=== PATIENT | female | born 1940 | race African-American/Black ===

== ENCOUNTER 2016-07-09 10:42 | Inpatient (IN) | payer OTHER, MEDICAID ==
[~2016-07-09] VITALS: Ht 180.3 cm; Wt 69.4 kg
[~2016-07-09 10:42] MED LIST: ADVAIR 250-501 EACH INH; AMLODIPINE BESY10 MG ORAL; COLCRYS0.6 M1 PO; GABAPENTIN100 MG ORAL; HYDROCHLOROTHIA25 MG ORAL; LEVAQUIN500 MG ORAL; LORAZEPAM1 MG ORAL; MEDROL DOSEPAK4 MG ORAL; OMEPRAZOLE20 M2 ORAL; POTASSIUM CHLO10 ME2 PO; POTASSIUM20 MEQ/101 IV; PREDNISONE10 MG ORAL; PROAIR HFA8.5 GM INH; THEOPHYLLI80 MG/151 PO; TRAMADOL HCL50 MG ORAL
[2016-07-09 12:14] LABS: MEAN CORPUSCULAR HEMOGLOBIN 13.9 PG (27.0-31.0); MEAN CORPUSCULAR HGB CONC 26.1 G/DL (32.0-36.0); MEAN CORPUSCULAR VOLUME 53 FL (80-99); MEAN PLATELET VOLUME 5.4 FL (6.5-10.1); PLATELET COUNT 392 K/UL (150-450); RED CELL DISTRIBUTION WIDTH 16.9 % (11.6-14.8); WHITE BLOOD COUNT 9.1 K/UL (4.8-10.8)
[2016-07-09 12:19] VITALS: BP 127/75
[2016-07-09 12:28] LABS: ALANINE AMINOTRANSFERASE 8 U/L (3-33); ALBUMIN/GLOBULIN RATIO 1.9 (1.0-2.7); ANION GAP 11 (5-15); ASPARTATE AMINO TRANSFERASE 11 U/L (5-40); CALCIUM 8.8 mg/dL (8.6-10.2); CARBON DIOXIDE 31 mEQ/L (20-30); CHLORIDE 101 mEQ/L (98-107); CREATININE 0.6 mg/dL (0.5-0.9); HEMOLYSIS 0; POTASSIUM 2.9 mEQ/L (3.4-4.9); SODIUM 143 mEQ/L (135-145); TOTAL PROTEIN 6.1 g/dL (6.6-8.7)
[2016-07-09 12:30] LABS: INR 1.1 (0.9-1.1)
[2016-07-09 12:43] LABS: TROPONIN I < 0.30 ng/mL (<=0.30)
[2016-07-09 13:37] LABS: ANISOCYTOSIS 1+; BAND NEUTROPHILS % (MANUAL) 0 % (0-8); BASOPHILS % (MANUAL) 0 % (0-2); EOSINOPHILS % (MANUAL) 0 % (0-3); HYPOCHROMASIA 3+; LYMPHOCYTES % (MANUAL) 25 % (20-45); NEUTROPHILS % (MANUAL) 65 % (45-75); PLATELET ESTIMATE ADEQUATE; PLATELET MORPHOLOGY NORMAL; TOTAL CELLS COUNTED 100
[2016-07-09 13:38] LABS: MICROCYTES 1+
[2016-07-09] MEDS ORDERED: DiphenhydrAMINE 50mg/ml Inj IVP ONE (14:00)
--- NOTE | 2016-07-09 15:01 | Emergency Room Report ---
History of Present Illness General Chief Complaint: General Complaint Source: Patient Present Illness HPI 76-year-old female presents to ED for evaluation. States the last 2 weeks she has been having chest tightness. Denies any shortness of breath. Denies chest tightness at this time. Does history of high blood pressure. Was seen by her PMD this week Dr. Bowman. Had lab work which stated that her hemoglobin was 5.1. Was told to come to the ER for further evaluation. Denies feeling dizziness or weakness. Denies any evidence of rectal bleeding. No other aggravating or relieving factors. Denies any other associated symptoms Allergies: Coded Allergies: PENICILLINS (Verified Allergy, Severe, 03/13/15) Patient History Past Medical History: HTN, asthma Past Surgical History: none Pertinent Family History: none Social History: Denies: alcohol use, drug use, smoking Now: No Immunizations: UTD Reviewed Nursing Documentation: PMH: Agreed, PSxH: Agreed Nursing Documentation-PMH Past Medical History: No History, Except For Hx Hypertension: Yes Hx Asthma: Yes Hx Cancer: No Hx Gastrointestinal Problems: No Hx Neurological Problems: No Review of Systems All Other Systems: negative except mentioned in HPI Physical Exam Vital Signs Date Time Temp Pulse Resp B/P Pulse Ox O2 Delivery O2 Flow Rate FiO2 07/09/16 11:17 88 15 145/56 98 Room Air 07/09/16 12:19 97.5 Sp02 EP Interpretation: reviewed, normal General Appearance: no apparent distress, alert, GCS 15, non-toxic Head: normocephalic Eyes: bilateral eye PERRL, bilateral eye normal inspection ENT: hearing grossly normal, normal pharynx, no angioedema, normal voice Neck: full range of motion, supple/symm/no masses Respiratory: chest non-tender, lungs clear, normal breath sounds, speaking full sentences Cardiovascular #1: regular rate, rhythm, no edema Cardiovascular #2: 2+ carotid (R), 2+ carotid (L), 2+ radial (R), 2+ radial (L) , 2+ dorsalis pedis (R), 2+ dorsalis pedis (L) Gastrointestinal: normal bowel sounds, non tender, soft, non-distended, no guarding, no rebound Rectal: deferred Genitourinary: normal inspection, no CVA tenderness Musculoskeletal: back normal, gait/station normal, normal range of motion, non- tender Neurologic: alert, oriented x3, responsive, motor strength/tone normal, sensory intact, speech normal Psychiatric: judgement/insight normal, memory normal, mood/affect normal, no suicidal/homicidal ideation Reflexes: 3+ bicep (R), 3+ bicep (L), 3+ tricep (R), 3+ tricep (L), 3+ knee (R) , 3+ knee (L) Skin: normal color, no rash, warm/dry, well hydrated Lymphatic: no adenopathy Procedures Critical Care Time Critical Care Time i. I feel this is a highly complex case requiring extensive working including EKG/Rhythm strip, Xray/CT/US, Blood/urine lab work, repeat exams while in ED, and administration of strong opiates/narcotics for pain control, admission to hospital or close patient follow up. Total time: 30 min bedside evaluation and treatment excludes procedures (EKG). Reason for critical care: Hemoglobin 4.9 Possible complications: hypotension, hypertension, HI, shock, arrhythmias, metabolic acidosis, end organ damage, respiratory failure. Interventions: Labs, EKG, blood transfusion Course: Patient sent for evaluation of hemoglobin 5.1 done at PMD office. EKG shows no ischemic changes. Hemoglobin 4.9 here. Troponins negative. PRBCs ordered. Patient remains stable. Vital stable Consultations: nursing staff, EMS, family Performed by: Dr Srivastava Tolerated well condition = serious j. because of unstable vital signs this patient had a condition that could potentially threaten life or limb. I feel this is a critical patient who required my full attention while patient was considered critical. Total Critical Care Time excluding procedures was greater than 35 minutes Medical Decision Making Diagnostic Impression: Primary Impression: Anemia Qualified Codes: D64.9 - Anemia, unspecified ER Course Hospital Course 76-year-old female presents to ED for evaluation of possible anemia, with possible transfusion Differential diagnoses include: anemia requiring transfusion, microcytic anemia , macrocytic anemia, heavy blood loss Clinical course Patient placed on stretcher. After initial history and physical I ordered labs including CBC and type and screen. Labs- hemoglobin 4.9, troponins negative. EKG - no ischemic changes 4 units PRBCs ordered. case discused with Dr Roque and he agreed to admit patient to his service for further care and support Diagnosis - symptomatic anemia Admitted to tele in serious condition Labs Test 07/09/16 11:50 White Blood Count 9.1 K/UL (4.8-10.8) Red Blood Count 3.50 M/UL (4.20-5.40) Hemoglobin 4.9 G/DL (12.0-16.0) Hematocrit 18.6 % (37.0-47.0) Mean Corpuscular Volume 53 FL (80-99) Mean Corpuscular Hemoglobin 13.9 PG (27.0-31.0) Mean Corpuscular Hemoglobin Concent 26.1 G/DL (32.0-36.0) Red Cell Distribution Width 16.9 % (11.6-14.8) Platelet Count 392 K/UL (150-450) Mean Platelet Volume 5.4 FL (6.5-10.1) Neutrophils (%) (Auto) % (45.0-75.0) Lymphocytes (%) (Auto) % (20.0-45.0) Monocytes (%) (Auto) % (1.0-10.0) Eosinophils (%) (Auto) % (0.0-3.0) Basophils (%) (Auto) % (0.0-2.0) Differential Total Cells Counted 100 Neutrophils % (Manual) 65 % (45-75) Lymphocytes % (Manual) 25 % (20-45) Monocytes % (Manual) 10 % (1-10) Eosinophils % (Manual) 0 % (0-3) Basophils % (Manual) 0 % (0-2) Band Neutrophils 0 % (0-8) Platelet Estimate Adequate Platelet Morphology Normal Hypochromasia 3+ Anisocytosis 1+ Microcytosis 1+ Prothrombin Time 11.0 SEC (9.30-11.50) Prothromb Time International Ratio 1.1 (0.9-1.1) Activated Partial Thromboplast Time 27 SEC (23-33) Sodium Level 143 mEQ/L (135-145) Potassium Level 2.9 mEQ/L (3.4-4.9) Chloride Level 101 mEQ/L (98-107) Carbon Dioxide Level 31 mEQ/L (20-30) Anion Gap 11 (5-15) Blood Urea Nitrogen 5 mg/dL (7-23) Creatinine 0.6 mg/dL (0.5-0.9) Estimat Glomerular Filtration Rate mL/min (>60) Glucose Level 94 mg/dL (74-106) Calcium Level 8.8 mg/dL (8.6-10.2) Total Bilirubin 0.7 mg/dL (0.0-1.2) Aspartate Amino Transf (AST/SGOT) 11 U/L (5-40) Alanine Aminotransferase (ALT/SGPT) 8 U/L (3-33) Alkaline Phosphatase 46 U/L (35-104) Troponin I < 0.30 ng/mL (<=0.30) Total Protein 6.1 g/dL (6.6-8.7) Albumin 4.0 g/dL (3.5-5.2) Globulin 2.1 g/dL Albumin/Globulin Ratio 1.9 (1.0-2.7) EKG Diagnostic Results Rate: normal Rhythm: NSR ST Segments: no acute changes ASA given to the pt in ED: No Rhythm Strip Diag. Results EP Interpretation: yes Rhythm: NSR, no PVC's, no ectopy Last Vital Signs Date Time Temp Pulse Resp B/P Pulse Ox O2 Delivery O2 Flow Rate FiO2 07/09/16 12:19 97.5 82 15 127/75 98 Room Air Status: improved Disposition: ADMITTED INPATIENT Condition: Serious Referrals: TEODORO BOWMAN (PCP) CELSO SRIVASTAVA M.D. Jul 09, 2016 15:01
[2016-07-09 15:13] VITALS: BP 126/60
[2016-07-09 16:00] VITALS: BP 140/70
[2016-07-09] MEDS ORDERED: traMADol 50mg tab ORAL PRN (17:30)
[2016-07-09] MEDS ORDERED: Albuterol 90mcg Inhaler 8gm INH PRN (17:30)
[2016-07-09] MEDS ORDERED: LORazepam 1mg tab ORAL SCH (18:00)
[2016-07-09] MEDS ORDERED: LORazepam 1mg tab ORAL PRN (18:45)
[2016-07-09 20:00] VITALS: BP 129/59
[2016-07-09] MEDS: Advair 250/50 Inhaler - 14 dose INH SCH (21:16)
--- NOTE | 2016-07-09 22:07 | History and Physical Report ---
DATE OF ADMISSION: 07/09/2016 HISTORY OF PRESENT ILLNESS: The patient is a 76-year-old woman, who was sent from her doctor's office because of anemia. She states that she has been feeling weak for about the past two weeks. She had no palpitations or shortness of breath. Her baseline asthma has been stable. She has no signs of bleeding. She went to her doctor today, who did a blood count and found her hemoglobin was 5.1. He has sent her to the emergency department. Here, her hemoglobin was repeated and it is 4.9. Her stool is negative for occult blood. She has no history of anemia or other blood disorders. PAST MEDICAL HISTORY: The patient is generally in good health. She has a history of hypertension and asthma. SURGICAL HISTORY: She had a hysterectomy. MEDICATIONS: Includes albuterol, amlodipine, colchicine, Advair, Neurontin, hydrochlorothiazide, Levaquin, Ativan, prednisone, omeprazole, potassium, theophylline, and tramadol. ALLERGIES: To penicillin. SOCIAL HISTORY: She does not drink or smoke and does not use illicit drugs. REVIEW OF SYSTEMS: Otherwise unremarkable except she does have vitiligo. She has arthritis and has had back surgery in the past. PHYSICAL EXAMINATION: GENERAL: The patient is alert and responds appropriately. VITAL SIGNS: Show blood pressure and other vital signs are normal. HEENT: Head is normocephalic. NECK: There is no jugular venous distention. No lymphadenopathy. CHEST: Clear with only occasional wheezing. CARDIAC: Rhythm is regular. ABDOMEN: Soft and nontender. Liver and spleen are not enlarged. No mass or ascites. EXTREMITIES: No clubbing, cyanosis, or edema. SKIN: Shows vitiligo. LABORATORY DATA: Hemoglobin is 4.9, hematocrit 18.6, MCV is low at 53, and platelet count 392,000. The white count is normal. Differential appears normal. Chemistry shows potassium is low at 2.9. BUN is 5 and creatinine 0.6. Protein is 6.1. Albumin is 4.0. IMPRESSION: 1. Severe anemia, microcytic, possibly related to iron-deficiency or thalassemia. 2. Hypokalemia. 3. Hypertension. 4. Asthma. PLAN: The patient will be given blood transfusions. We will have Hematology consultation. We will check stool for occult blood and check iron levels. Zeb Roque M.D. DR: MATTHEW JOB#: [id number] CC:
[2016-07-10 00:43] VITALS: BP 136/65
[2016-07-10 04:39] VITALS: BP 143/62
[2016-07-10 05:12] LABS: MEAN CORPUSCULAR HEMOGLOBIN 18.2 PG (27.0-31.0); MEAN CORPUSCULAR HGB CONC 29.8 G/DL (32.0-36.0); MEAN CORPUSCULAR VOLUME 61 FL (80-99); MEAN PLATELET VOLUME 5.9 FL (6.5-10.1); PLATELET COUNT 360 K/UL (150-450); RED BLOOD COUNT 4.28 M/UL (4.20-5.40); RED CELL DISTRIBUTION WIDTH 27.2 % (11.6-14.8); WHITE BLOOD COUNT 8.4 K/UL (4.8-10.8)
[2016-07-10 07:50] LABS: OTHERS PATHOLOGIST COMMENT
[2016-07-10 08:04] VITALS: BP 138/59
[2016-07-10] MEDS: Advair 250/50 Inhaler - 14 dose INH SCH ×2 (08:58→20:47)
[2016-07-10] MEDS ORDERED: Pneumococcal Vaccine 25mcg/0.5ml IM ONE (09:00)
[2016-07-10 11:43] VITALS: BP 147/66
[2016-07-10 12:57] LABS: HEMOLYSIS 6; IRON 15 ug/dL (37-145); TOTAL IRON BINDING CAPACITY 358 ug/dL (250-400)
[2016-07-10 13:41] LABS: FERRITIN 8 ng/mL (13-150)
--- NOTE | 2016-07-10 14:18 | Cardiology Report ---
APPROVED REPORT EKG Measurement Heart [id number] Normal sinus rhythm Anterior infarct, age undetermined Abnormal ECG
[2016-07-10 16:00] VITALS: BP 140/67
--- NOTE | 2016-07-10 18:19 | General Progress Note ---
Assessment/Plan Assessment/Plan 1. Severe anemia, microcytic, possibly related to iron-deficiency or thalassemia. 2. Hypokalemia. 3. Hypertension. 4. Asthma. feels better iron studies suggest iron deficiency Hgb 7.8 - will give one more unit heme called prob dc tomorrow out pt GI eval Subjective Constitutional: Reports: no symptoms Allergies: Coded Allergies: PENICILLINS (Verified Allergy, Severe, 03/13/15) Objective Last 24 Hour Vital Signs Date Time Temp Pulse Resp B/P Pulse Ox O2 Delivery O2 Flow Rate FiO2 07/10/16 16:00 98.1 66 20 140/67 97 Room Air 07/10/16 12:00 74 07/10/16 11:43 97.7 70 18 147/66 98 Room Air 07/10/16 09:00 72 18 96 Room Air 07/10/16 08:58 72 18 96 Room Air 07/10/16 08:52 66 138/59 07/10/16 08:04 97.7 66 18 138/59 97 Room Air 07/10/16 08:00 80 07/10/16 04:39 98.1 73 18 143/62 94 Room Air 07/10/16 04:00 71 07/10/16 00:43 97.2 69 19 136/65 98 Room Air 07/10/16 00:00 75 07/09/16 21:17 68 20 95 Room Air 07/09/16 21:17 68 20 95 Room Air 07/09/16 20:00 76 07/09/16 20:00 97.9 68 21 129/59 95 Room Air Intake and Output 07/09/16 07/10/16 19:00 07:00 Intake Total 120 ml 300 ml Balance 120 ml 300 ml Intake Oral 120 ml 300 ml # Voids 3 Laboratory Tests 07/09/16 20:08: Urine Total Protein [Pending], Urine Albumin (%) [Pending], Urine Alpha-1- Globulins (%) [Pending], Urine Vilzz-5-Lakfscvmd (%) [Pending], Urine Beta- Globulin (%) [Pending], Urine Gamma Globulin (%) [Pending], Ur Protein Electrophoresis M-Cyrus [Pending], Urine Protein Electrophoresis Intrp [Pending] 07/10/16 05:00: White Blood Count 8.4, Red Blood Count 4.28, Hemoglobin 7.8#L, Hematocrit 26.1#L , Mean Corpuscular Volume 61#L, Mean Corpuscular Hemoglobin 18.2L, Mean Corpuscular Hemoglobin Concent 29.8L, Red Cell Distribution Width 27.2H, Platelet Count 360, Mean Platelet Volume 5.9L, Neutrophils (%) (Auto) , Lymphocytes (%) (Auto) , Monocytes (%) (Auto) , Eosinophils (%) (Auto) , Basophils (%) (Auto) , Reticulocyte Count 2.3H, Hemoglobin A [Pending], Hemoglobin A2 [Pending], Hemoglobin C [Pending], Hemoglobin F () [Pending] , Hemoglobin S [Pending], Variant Hemoglobin [Pending], Hemoglobin Electrophoresis Interp [Pending], Hemoglobin Interpretation [Pending], Hemoglobin Solubility [Pending], Iron Level 15L, Total Iron Binding Capacity 358 , Percent Iron Saturation 4L, Unsaturated Iron Binding 343, Ferritin 8L, Vitamin B12 Level [Pending] 07/10/16 08:55: Stool Occult Blood Negative Height (Feet): 5 Height (Inches): 11.00 Weight (Pounds): 153 General Appearance: no apparent distress Cardiovascular: normal rate Respiratory/Chest: lungs clear Abdomen: soft, no organomegaly ELDER HAMPTON Jul 10, 2016 18:19
[2016-07-10 19:00] VITALS: BP 118/57
[2016-07-10] MEDS ORDERED: Iron Sucrose 100 MG in NS 55 ML IVPB SCH (21:00)
[2016-07-11 00:21] VITALS: BP 146/67
[2016-07-11 04:18] VITALS: BP 143/65
--- NOTE | 2016-07-11 05:57 | Consultation ---
DATE OF CONSULTATION: 07/10/2016 NOTE: POOR AUDIO HEMATOLOGY/ONCOLOGY CONSULTATION CONSULTING PHYSICIAN: Meng Hunt M.D. REQUESTING PHYSICIAN: Zeb Roque M.D. REASON FOR CONSULTATION: Evaluation of iron deficiency anemia. IDENTIFICATION DATA: Dear Dr. Zeb Roque, The patient is a pleasant 76-year-old female, with a past medical history significant for anemia, hypertension, and asthma, at this time presents to the [facility] with weakness as well as malaise and fatigue over the past several weeks. She otherwise had no shortness of breath. Upon presentation to the ER, she was noted to have a hemoglobin of 5.1. blood. Iron panel was ordered, which showed an iron deficiency anemia as well as . Hematology service was consulted for further evaluation and treatment. PAST MEDICAL HISTORY: Hypertension and asthma. SURGICAL HISTORY: Hysterectomy. MEDICATIONS: Albuterol, colchicine, Ativan, amlodipine, Neurontin, Levaquin, Advair, prednisone, omeprazole, potassium, and tramadol. ALLERGIES: Penicillin. SOCIAL HISTORY: No alcohol, tobacco, or illicit drug use. REVIEW OF SYSTEMS: Constitutional: No fever, chills, or night sweats. Skin: No rashes, lumps, or itching. HEENT: No headache, hearing or vision changes. Breasts: No lumps, pain, or discharge. Pulmonary: No cough, sputum, or shortness of breath. Cardiovascular: No chest pain, tightness, or palpitations. Gastrointestinal: No nausea, vomiting, or diarrhea. Genitourinary: No dysuria, frequency, or urgency. Musculoskeletal: No joint swelling, muscle pain, or trauma. Neurological: No dizziness, fainting, or seizures. PHYSICAL EXAMINATION: GENERAL: The patient is in no acute distress. VITAL SIGNS: Temperature 98.1 degrees Fahrenheit , pulse 63, respiratory rate 12, blood pressure 140/67, and pulse oximetry 97% on room air. PULMONARY: Decreased breath sounds. CARDIOVASCULAR: Regular rate and rhythm. No S3 or S4. ABDOMEN: Soft, nontender, and nondistended. EXTREMITIES: A 1+ edema. Laboratory Data: WBC 8.4, hemoglobin 7.8, hematocrit 26, MCV 51, and 01:56 213. Hemoglobin electrophoresis pending. BUN of 11 and creatinine 0.6. TIBC 343, ferritin of 8, INR 1.1. ASSESSMENT: 1. Anemia secondary to iron deficiency. The patient is status post transfusion with dialysis. 2. Decreased hemoglobin and hematocrit, rule out gastrointestinal bleed. 3. Microcytosis, concerning for thalassemia and/or thalassemia minor. 4. Hypertension. 5. Hypokalemia. 6. Asthma. RECOMMENDATION: 1. Monitor counts. 2. Anemia workup shows severe iron deficiency anemia. 3. . 4. IV iron. 5. Obtain hemoglobin and electrophoresis. 6. B12 and folate levels review. 7. the patient improves. 8. Maintain hemoglobin . 9. GI therapy evaluation as an outpatient. 10. Discussed with staff. Thank you, Dr. Zeb Roque, for this kind referral. Please do not hesitate to contact me if you have any further questions. Meng Hunt M.D. DR: GALA JOB#: [id number] CC:
[2016-07-11 08:00] VITALS: BP 149/70
[2016-07-11 08:03] LABS: BASOPHILS % (AUTO) 0.8 % (0.0-2.0); EOSINOPHILS % (AUTO) 1.6 % (0.0-3.0); LYMPHOCYTES % (AUTO) 15.5 % (20.0-45.0); MEAN CORPUSCULAR HEMOGLOBIN 18.6 PG (27.0-31.0); MEAN CORPUSCULAR VOLUME 64 FL (80-99); MEAN PLATELET VOLUME 6.4 FL (6.5-10.1); MONOCYTES % (AUTO) 11.7 % (1.0-10.0); NEUTROPHILS % (AUTO) 70.5 % (45.0-75.0); PLATELET COUNT 389 K/UL (150-450); RED BLOOD COUNT 5.08 M/UL (4.20-5.40); RED CELL DISTRIBUTION WIDTH 28.8 % (11.6-14.8); WHITE BLOOD COUNT 9.5 K/UL (4.8-10.8)
[2016-07-11 08:26] LABS: ANION GAP 14 (5-15); CALCIUM 9.1 mg/dL (8.6-10.2); CARBON DIOXIDE 26 mEQ/L (20-30); CHLORIDE 104 mEQ/L (98-107); CREATININE 0.5 mg/dL (0.5-0.9); HEMOLYSIS 1; POTASSIUM 3.3 mEQ/L (3.4-4.9); SODIUM 144 mEQ/L (135-145)
[2016-07-11] MEDS: Advair 250/50 Inhaler - 14 dose INH SCH ×2 (09:28→19:13)
[2016-07-11 12:00] VITALS: BP 145/66
[2016-07-11] MEDS ORDERED: FERROUS SULFAT325 MG ORAL (15:40)
--- NOTE | 2016-07-11 15:43 | Discharge Summary ---
Discharge Summary Hospital Course Date of Admission Jul 09, 2016 at 14:10 Date of Discharge 07/11/16 Admitting Diagnosis SEVERE ANEMIA HPI Marina L Tee is a 76 year old female who was admitted on Jul 09, 2016 at 14: 10 for Severe Anemia Consultations hematology Procedures transfusion x 4 u PRBCs Hospital Course Hgb better post transfusion labs c/w iron deficiency stool neg advised she needs panendoscopy as outpatient Discharge Medications New Medications: Ferrous Sulfate* (Ferrous Sulfate*) 325 Mg Tablet 325 MG ORAL THREE TIMES A DAY, #90 TAB 0 Refills Continued Medications: Albuterol Sulfate* (Proair Hfa*) 8.5 Gm Hfa.aer.ad 1 PUFF INH Q6H, #8.5 GM 0 Refills Amlodipine Besylate* (Amlodipine Besylate*) 10 Mg Tablet 10 MG ORAL DAILY, TAB Colchicine (Colcrys) 0.6 Mg Tablet 0.6 MG PO, TAB Fluticasone/Salmeterol (Advair 250-50 Diskus) 1 Each Disk.w.dev 1 PUFF INH EVERY 12 HOURS, EA Gabapentin* (Gabapentin*) 100 Mg Capsule 100 MG ORAL THREE TIMES A DAY, CAP Hydrochlorothiazide* (Hydrochlorothiazide*) 25 Mg Tablet 25 MG ORAL DAILY, TAB Lorazepam* (Lorazepam*) 1 Mg Tablet 1 MG ORAL THREE TIMES A DAY, TAB Methylprednisolone (Methylprednisolone) 4 Mg Tab 4 MG ORAL .as directed, #1 EA 0 Refills Omeprazole (Omeprazole) 20 Mg Capsule.dr 20 MG ORAL DAILY, CAP Potassium Chloride (Potassium Chloride) 10 Meq Tab.er.prt 20 MEQ PO DAILY, TAB Tramadol Hcl* (Ultram*) 50 Mg Tablet 50 MG ORAL Q6H PRN for For Pain, #30 TAB 0 Refills Discharge Condition Upon Discharge: improving Discharge Disposition Patient was discharged to home Discharge Diagnoses: (1) HTN (hypertension) (2) Anemia (3) Iron deficiency ELDER HAMPTON Jul 11, 2016 15:43
[2016-07-11 16:00] VITALS: BP 140/64
[2016-07-11] MEDS ORDERED: NS 275ml ONE (19:32)
[2016-07-11] MEDS ORDERED: Tubing Blood Filter IV ONE (19:32)
--- NOTE | 2016-07-11 21:12 | General Progress Note ---
Assessment/Plan Assessment/Plan ASSESSMENT: 1. Anemia secondary to iron deficiency. The patient is status post transfusion with improvement in h/h 2. Decreased hemoglobin and hematocrit, rule out gastrointestinal bleed. 3. Microcytosis, concerning for thalassemia and/or thalassemia minor. 4. Hypertension. 5. Hypokalemia. 6. Asthma. RECOMMENDATION: 1. Monitor counts. 2. Anemia workup shows severe iron deficiency anemia. 3. Panendoscpy as an outpatient 4. Continue IV iron. 5. Pending hemoglobin and electrophoresis. 6. B12 and folate levels reviewed. 7. Stable from heme for d/c 8. Maintain hemoglobin >7 9. GI therapy eval prn 10. DW staff. Thank you, Meng Hunt MD Subjective Constitutional: Reports: no symptoms HEENT: Reports: no symptoms Cardiovascular: Reports: no symptoms Respiratory: Reports: no symptoms Gastrointestinal/Abdominal: Reports: no symptoms Genitourinary: Reports: no symptoms Neurologic/Psychiatric: Reports: no symptoms Endocrine: Reports: no symptoms Hematologic/Lymphatic: Reports: anemia Allergies: Coded Allergies: PENICILLINS (Verified Allergy, Severe, 03/13/15) Subjective stable, to be discharged Objective Last 24 Hour Vital Signs Date Time Temp Pulse Resp B/P Pulse Ox O2 Delivery O2 Flow Rate FiO2 07/11/16 19:14 70 18 96 Room Air 07/11/16 19:13 70 18 96 Room Air 07/11/16 16:00 97.8 72 21 140/64 100 Room Air 07/11/16 14:46 98.8 07/11/16 12:00 98.1 75 18 145/66 98 Room Air 78 07/11/16 09:32 77 149/70 07/11/16 09:29 77 18 97 Room Air 07/11/16 09:28 77 18 97 Room Air 07/11/16 08:07 74 07/11/16 08:00 98.1 71 18 149/70 96 Room Air 85 07/11/16 04:18 98.8 68 19 143/65 96 Room Air 07/11/16 04:00 70 07/11/16 00:21 99.1 78 18 146/67 95 Room Air 07/11/16 00:00 75 Intake and Output 07/10/16 07/11/16 19:00 07:00 Intake Total 600 ml 480 ml Balance 600 ml 480 ml Intake Oral 600 ml 240 ml IV Total 240 ml # Voids 3 5 # Bowel Movements 1 Laboratory Tests 07/11/16 06:50: White Blood Count 9.5, Red Blood Count 5.08, Hemoglobin 9.5L, Hematocrit 32.7L, Mean Corpuscular Volume 64L, Mean Corpuscular Hemoglobin 18.6L, Mean Corpuscular Hemoglobin Concent 29.0L, Red Cell Distribution Width 28.8H, Platelet Count 389, Mean Platelet Volume 6.4L, Neutrophils (%) (Auto) 70.5, Lymphocytes (%) (Auto) 15.5L, Monocytes (%) (Auto) 11.7H, Eosinophils (%) (Auto ) 1.6, Basophils (%) (Auto) 0.8, Sodium Level 144, Potassium Level 3.3L, Chloride Level 104, Carbon Dioxide Level 26, Anion Gap 14, Blood Urea Nitrogen 5L, Creatinine 0.5, Estimat Glomerular Filtration Rate , Glucose Level 81, Calcium Level 9.1 Height (Feet): 5 Height (Inches): 11.00 Weight (Pounds): 153 General Appearance: no apparent distress EENT: TMs normal Neck: supple Cardiovascular: regular rhythm Respiratory/Chest: lungs clear Abdomen: non tender Extremities: non-tender Edema: 1+ Leg (L), 1+ Leg (R) Edema: mild edema Neurologic: alert Skin: warm/dry Meng Hunt Jul 11, 2016 21:12
--- NOTE | 2016-07-12 06:07 | Discharge Summary 2 SIG ---
DATE OF ADMISSION: 07/09/2016 DATE OF DISCHARGE: 07/11/2016 Dictation cancelled Thee Young M.D. I have been assigned to dictate discharge summary on this account and I was not involved in the patient's management. Kaylene Neri N.P. DR: HALEY JOB#: [id number] CC:
[2016-07-12 08:55] LABS: ALBUMIN 52.5 % (.); ALPHA-2 GLOB URINE 8.1 % (.); BETA GLOBULIN URINE 18.4 % (.); GAMMA GLOBULIN URINE 13.4 % (.)
[2016-07-15 10:17] LABS: FETAL HEMOGLOBIN 2.7 % (0.0-2.0); HEMOGLOBIN A 96.3 % (94.0-98.0)
== END 2016-07-11 19:33 | disposition home or self-care (01) | DRG 812 ==
LOC: EMR 12:22 → 2E 14:10 → EDBEDREQ 14:17
PROC: 30233N1 Transfusion of Nonautologous Red Blood Cells into Peripheral Vein, Percutaneous Approach (ICD-10-PCS; principal; 2016-07-09)
DX: D50.9 Iron deficiency anemia, unspecified (principal); I10 Essential (primary) hypertension; E87.6 Hypokalemia; J45.909 Unspecified asthma, uncomplicated; Z79.52 Long term (current) use of systemic steroids; Z79.899 Other long term (current) drug therapy; Z88.0 Allergy status to penicillin
CPT/HCPCS: 36415; 80048; 80053; 82270; 82607; 82728; 82746; 83020; 83540; 83550; 84165; 84484; 85007; 85025; 85044; 85610; 85730; 86850; 86900; 86901; 86920; 93005; 94640; J8499